=== PATIENT | female | born 1935 | race Caucasian/White ===

== ENCOUNTER → 2020-03-01 | Outpatient (CLI) | payer MEDICARE ==
--- NOTE | 2020-03-01 17:31 | RAD ---
DATE: 03/01/2020 2:35 PM EXAM: DIGITAL SCREEN BILAT W/CAD HISTORY: Screening COMPARISON: 08/06/2018, 05/13/2017 Bilateral full field craniocaudal and mediolateral oblique images were obtained using digital technique. This study was interpreted with the benefit of Computerized Aided Detection (CAD). FINDINGS: Breast Density: SCATTERED The breast parenchyma shows scattered fibroglandular densities. Breast parenchyma level B No suspicious masses, microcalcifications or architectural distortion is present to suggest malignancy in either breast. The visualized axillae are unremarkable. IMPRESSION: No mammographic evidence of malignancy. BI-RADS CATEGORY: 1 NEGATIVE RECOMMENDED FOLLOW-UP: 12M 12 MONTH FOLLOW-UP Annual screening mammography is recommended, unless clinically indicated sooner based on symptoms or change in physical exam. PQRS compliance statement: Patient information was entered into a reminder system with a target due date for the next mammogram. Mammography is a sensitive method for finding small breast cancers, but it does not detect them all and is not a substitute for careful clinical examination. A negative mammogram does not negate a clinically suspicious finding and should not result in delay in biopsying a clinically suspicious abnormality. "Our facility is accredited by the [employer] Mammography [employer]."
== END | disposition home or self-care (01) ==
LOC: MAMMO 14:33
PROVIDERS: ATTEND Family Medicine
DX: Z12.31 Encounter for screening mammogram for malignant neoplasm of breast (principal)
CPT/HCPCS: 77067

== ENCOUNTER → 2020-12-13 | Outpatient (CLI) | payer MEDICARE ==
[2020-12-13] MEDS: IOHEXOL 350 MG/ML 100 ML VIAL. IV ONE (12:45)
--- NOTE | 2020-12-13 13:20 | RAD ---
EXAM: CT angiography of the chest with intravenous contrast. HISTORY: Weakness. Shortness of breath. TECHNIQUE: Computed tomographic images of the chest were obtained following the administration of int ravenous contrast according to angiography protocol. Multiplanar reformatting was performed and three dimensional maximum intensity projection images were obtained. *One or more of the following individualized dose reduction techniques were utilized for this examina tion: 1. Automated exposure control. 2. Adjustment of the mA and/or kV according to patient size. 3. Use of iterative reconstruction technique. COMPARISON: None. FINDINGS: There is no evidence of pulmonary emphysema. There is no aortic dissection or aneurysm. The re is calcified atherosclerotic plaque involving the aorta and coronary arteries. There are enlarged mediastinal and hilar lymph nodes. There is no pneumothorax or pleural effusion. There is mild bilate ral air trapping. There is a large hiatal hernia with intrathoracic positioning of the stomach. There is left infrahilar and lingular compressive atelectasis. There is also bilateral posterior dependent and basilar atelectasis. There is anterior right middle lobe pleural parenchymal scarring. There is no acute finding involving the upper abdomen. There is colonic diverticulosis. There are degenerative changes throughout the spine. There is multilevel endplate remodeling with disc space narrowing and osteophytosis. There are few lucent lesions within the vertebral column due to hemangiomas. There are multiple thyroid nodules and cysts. IMPRESSION: 1. No evidence of pulmonary embolism. 2. Lingular and left infrahilar airspace disease likely due to compressive atelectasis or scarring. N o consolidated infiltrate is seen. 2. Mild bilateral air trapping. 3. Large hiatal hernia with intrathoracic positioning of the stomach. 4. Mediastinal and hilar lymphadenopathy. This is nonspecific and may be reactive in etiology. 5. Multiple thyroid nodules and cysts. This can be assessed with a thyroid sonogram. Electronically signed by: Aydee Briceno MD (12/13/2020 1:17 PM) [id number]
== END ==
LOC: CT 12:34
PROVIDERS: ATTEND Family Medicine
DX: R59.0 Localized enlarged lymph nodes (principal); E04.2 Nontoxic multinodular goiter; K44.9 Diaphragmatic hernia without obstruction or gangrene
CPT/HCPCS: 71275; Q9967

== ENCOUNTER → 2020-12-19 | Outpatient (CLI) | payer MEDICARE ==
[~2020-12-19] MED LIST: IOHEXOL 350 MG/ML 100 ML VIAL. IV ONE
--- NOTE | 2020-12-19 11:31 | RAD ---
PQRS Compliance Statement: One or more of the following individualized dose reduction techniques were utilized for this examinat ion: 1. Automated exposure control 2. Adjustment of the mA and/or kV according to patient size 3. Use of iterative reconstruction technique CTA CHEST 12/19/2020 9:30 AM INDICATION: Shortness of breath COMPARISON: CT chest 12/13/2020 TECHNIQUE: Axial CT images of the chest were obtained after the intravenous administration of nonioni c contrast. Coronal and sagittal reformats are provided. Maximum intensity projection images of the t horacic vasculature are provided. FINDINGS: Stable bilateral thyroid nodules. Stable mediastinal and hilar lymphadenopathy seen on prior chest CT from 12/13/2020. The heart size is similar in appearance.. Large hiatal hernia. Thoracic stomach and p ancreas. Three-vessel coronary vascular calcifications. No significant pericardial effusion. Thoracic aorta is normal in course and caliber. There is adequate opacification of the pulmonary arterial system. There there are no filling defects within the pulmonary arterial system to suggest acute or chronic pulmonary embolus. Similar appearance of air trapping. No new or enlarging solid noncalcified pulmonary nodules. Bronchi al wall thickening compatible with nonspecific bronchitis. Bibasilar subsegmental atelectasis, left g reater than right. Findings are stable from prior examination. Left renal parapelvic cysts are identified. No suspicious osseous lesions are visualized. IMPRESSION: There is no evidence for acute or chronic pulmonary embolism. Aeration of lungs appear stable. Large hiatal hernia without significant change. Electronically signed by: Etta Rivera MD (12/19/2020 11:28 AM) [id number]
== END ==
LOC: CT 09:11
PROVIDERS: ATTEND Family Medicine
DX: J98.11 Atelectasis (principal); K44.9 Diaphragmatic hernia without obstruction or gangrene; R59.0 Localized enlarged lymph nodes; E04.2 Nontoxic multinodular goiter; N28.1 Cyst of kidney, acquired; I25.10 Atherosclerotic heart disease of native coronary artery without angina pectoris
CPT/HCPCS: 71275; Q9967

== ENCOUNTER → 2021-03-20 | Outpatient (CLI) | payer MEDICARE ==
--- NOTE | 2021-03-20 09:43 | RAD ---
EXAM: Bilateral screening mammogram. HISTORY: 85-year-old female presents for screening mammography. TECHNIQUE: Full-field digital craniocaudal and mediolateral oblique views of both breasts are obtaine d for evaluation. Computer aided detection was applied. COMPARISON: 03/01/2020 BREAST PARENCHYMAL DENSITY: Level B - Scattered fibroglandular densities. FINDINGS: There is no new suspicious mass, microcalcification or region of architectural distortion. IMPRESSION: BI-RADS Category 1: Negative. RECOMMENDATION: Annual mammography is recommended. If your mammogram demonstrates that you have dense breast tissue, which could hide abnormalities, and if you have other risk factors for breast cancer that have been identified, you might benefit from s upplemental screening tests that may be suggested by your ordering physician. Dense breast tissue, i n and of itself, is a relatively common condition. This information is not provided to cause undue c oncern, but rather to raise your awareness and to promote discussion with your physician regarding th e presence of other risk factors, in addition to dense breast tissue. A report of your mammography re sults will be sent to you and your physician. You should contact your physician if you have any ques tions or concerns regarding this report. Mammography is a sensitive method for finding small breast cancers, but it does not detect them all a nd is not a substitute for careful clinical examination. A negative mammogram does not negate a clin ically suspicious finding and should not result in delay in biopsying a clinically suspicious abnorma lity. PQRS compliance statement - Patient information was entered into a reminder system with a target due date for the next mammogram. "Our facility is accredited by the [employer] Mammography [employer]." Electronically signed by: Aydee Briceno MD (03/20/2021 9:41 AM) [id number]
== END ==
LOC: MAMMO 08:43
PROVIDERS: ATTEND Family Medicine
DX: Z12.31 Encounter for screening mammogram for malignant neoplasm of breast (principal)
CPT/HCPCS: 77067